=== PATIENT | female | born 1985 | race Caucasian/White ===

== ENCOUNTER 2017-07-29 22:57 | Emergency (ER) | payer BC, OTHER ==
[~2017-07-29] VITALS: Ht 180.3 cm; Wt 61.8 kg
[~2017-07-29 22:57] MED LIST: MINASTRIN 24 F1 EACH PO
[2017-07-29 23:24] LABS: APPEARANCE CLOUDY ((CLEAR)); BILIRUBIN NEGATIVE; BLOOD SMALL; COLOR AMBER ((YELLOW)); GLUCOSE (STRIP) NEGATIVE; KETONES NEGATIVE; LEUKOCYTES LARGE; NITRITE POSITIVE; PROTEIN (STRIP) 100; SPECIFIC GRAVITY 1.026 (1.000-1.030)
[2017-07-29 23:30] LABS: BACTERIA RARE /HPF; EPITHELIAL CELLS 2+ /HPF; MUCUS 4+ /LPF; RED BLOOD CELLS 40-50 /HPF (0-5); UCUL ADDED? YES; WHITE BLOOD CELLS TNTC /HPF (0-5)
[2017-07-30] MEDS ORDERED: BACTRIM,SEPT1 TABLET PO (00:46)
[2017-07-30] MEDS ORDERED: PYRIDIUM100 MG PO (00:46)
[2017-07-30 01:10] VITALS: BP 122/70
== END 2017-07-30 01:11 | disposition home or self-care (01) ==
LOC: EME 22:57
DX: N30.00 Acute cystitis without hematuria (principal); Z87.440 Personal history of urinary (tract) infections
CPT/HCPCS: 81003; 81025; 87086